=== PATIENT | male | born 1980 | race Caucasian/White ===

== ENCOUNTER 2024-05-29 10:16 | Outpatient (CLI) | payer SELFPAY ==
--- NOTE | 2024-05-29 10:39 | CT_ITS ---
WS: [id number] CT ABDOMEN AND PELVIS WITH CONTRAST HISTORY: K37 - Unspecified appendicitis TECHNIQUE: Imaging performed of the abdomen and pelvis with IV contrast. Single phase imaging of the abdomen. Coronal and sagittal reformats are submitted. All CT scans at [facility] use at [address] one of these dose optimization techniques: automated exposure control; mA and/or kV adjustment per patient size (includes targeted exams where dose is matched to clinical indication); or iterative re construction. IV CONTRAST: Omnipaque 350; 100 mL IV. Oral contrast: No DLP: 375.06 mGy.cm COMPARISON: None available. Lower thorax: Lung bases are clear. Heart is normal size. No hiatal hernia. Liver/biliary system: Normal size with no intrahepatic dilatation. Gallbladder: Normal. No gallstones or wall thickening. No pericholecystic fluid. Pancreas: Normal size pancreas and pancreatic duct. No adjacent inflammation. Spleen: Normal size spleen. No mass or infarct. Adrenal glands: Normal. Right kidney: Normal. Left kidney: Normal. Aorta: Normal. Lymphadenopathy: None. Free fluid: None. GI tract: Abnormal appendix. The appendix is dilated to 11 mm in diameter. There is mild periappendic eal inflammation. No appendiceal rupture. There is no abscess. No GI tract obstruction. Diffuse moder ate constipation. Abdominal wall: Unremarkable abdominal wall. No hernia. Pelvis: No free fluid or adenopathy within the pelvis. Bones: Hypertrophic RIGHT ilium is not acute. No destruction. CT/CT abdomen pelvis w con* [id number] IMPRESSION: 1. Acute appendicitis without rupture. No abscess or free fluid. 2. Mild diffuse constipation. 3. No renal obstruction. Notified ROSA Mauro at 05/29/2024 11:03 AM.
[2024-05-29] MEDS: iohexol 350 mg/mL 500 mL Btl (per mL) IV (10:48)
== END 2024-05-29 10:17 | disposition home or self-care (01) ==
LOC: RAD 10:17
PROVIDERS: Family Provider Nurse Practitioner Family; PCP Nurse Practitioner Family; Visit Provider Registered Nurse
DX: K35.890 Other acute appendicitis without perforation or gangrene (principal); K59.00 Constipation, unspecified
CPT/HCPCS: 74177; 81000

== ENCOUNTER 2024-05-29 11:13 | Observation (INO) | payer SELFPAY ==
[2024-05-29] VITALS (16 sets, daily range): BP systolic 121–158; BP diastolic 73–93; PULSE 61–97; RESP 16–22; TEMP 36.2–36.6; O2SAT 92–99; BMI 25.0; BMI 25.2
--- NOTE | 2024-05-29 11:33 | W.ED.ABDPA2 ---
HPI - Abdominal Pain General: Chief Complaint: Abdominal Pain Stated Complaint: appendix(sent by ct) Time Seen by Provider: 05/29/24 11:24 Source: patient Mode of arrival: ambulatory Limitations: no limitations History of Present Illness: 44-year-old male states has been having right lower quad abdominal pain for the last 3 days. Seen in clinic today and set him up for outpatient CT scan that showed appendicitis was sent here. He rates his pain a 4 out of 10 currently has had some nausea denies any vomiting denies any fever Associated Symptoms: Denies chills, diarrhea, fever(s), nausea and vomiting Related Data Home Medications Medication Instructions Recorded Confirmed No Known Home Medications 08/01/23 05/29/24 Allergies Allergy/AdvReac Type Severity Reaction Status Date / Time Opioids - Morphine Analogues Allergy Severe throat Verified 05/29/24 08:41 swelling Review of Systems Const: Denies: fever(s), chills, body aches or change in appetite ENMT: Denies: throat pain or dental pain Card: Denies: chest pain Resp: Denies: dyspnea GI: Reports: abdominal pain; Denies: nausea, vomiting or diarrhea Musc: Denies: neck pain or back pain Skin/Breast: Denies: rash Neuro: Denies: headache(s) PFSH ED PFSH: Family History Other COPD (chronic obstructive pulmonary disease) Diabetes Diabetes mellitus type 1 Social History Smoking and tobacco/nicotine status: current every day tobacco/nicotine user Physical Exam Const: COMMON NORMALS: no acute distress, patient oriented x3 and healthy appearing HENMT: COMMON NORMALS: normocephalic and atraumatic HEAD & SCALP: normocephalic and atraumatic Eye: COMMON NORMALS: Equal, round and reactive pupils present and EOMs intact bilaterally PUPIL: Yes Equal, round and reactive pupils present Neck/C-Spine: COMMON NORMALS: full ROM and supple Chest: COMMONS NORMALS: normal inspection of the chest Resp: COMMON NORMALS: normal respiratory effort Cardio: COMMON NORMALS: regular rate, regular rhythm and No murmurs present (Cardio) RATE: regular rate RHYTHM: regular rhythm GI: COMMON NORMALS: Normal to inspection, nondistended, normoactive bowel sounds present, Soft to palpation and no masses PALPATION: Yes Soft to palpation and Yes Tenderness to palpation present (GI) Details: RLQ Extremity: COMMON NORMALS: normal to inspection and full ROM Neuro: COMMON NORMALS: patient oriented x3, moves all extremities and no focal motor deficits Psych: COMMON NORMALS: mental status grossly normal, Normal thought process present and cooperative THOUGHT PROCESS: Normal thought process present Skin: COMMON NORMALS: no rashes or lesions noted and no wounds GENERAL SKIN EXAM: no rashes or lesions noted Course Vital Signs: Vital signs: Vital Signs Temperature 97.8 F 05/29/24 11:25 Pulse Rate 66 05/29/24 11:25 Respiratory Rate 16 05/29/24 11:25 Blood Pressure 126/91 05/29/24 11:25 Pulse Oximetry 98 05/29/24 11:25 Oxygen Delivery Me thod Room Air 05/29/24 11:25 MDM - Abdominal Pain Medical Decision Making I spoke to surgeon Dr. melo will admit patient this time for his appendicitis Medical Records I reviewed the patient's medical records. All radiology interpretation(s) finalized by discharge Discharge Plan Discharge Patient Disposition: Admitted As Inpatient Clinical Impression: Acute appendicitis Condition: Stable Prescriptions: No Action No Known Home Medications Referrals: Blayne Kay FNP [Primary Care Provider] - Patient Instructions: Appendicitis (GEN) Coding Level of Care Code ED Plant Engineering Manager for Shakila Almanzar
[2024-05-29] MEDS: piperacillin-tazobactam 3.375 GM in sodium chloride 0.9% (plus) 50 ML IV ×2 (11:49→17:51)
[2024-05-29] MEDS: ondansetron 2 mg/ML SDV 2 mL 4 MG IVP (12:13)
[2024-05-29 12:37] LABS: Basophils % 0.4 %; Eosinophils # 0.1 10^3/uL (0.0-0.8); Eosinophils % 1.6 %; Hematocrit 47.2 % (37-53); Lymphocytes # 2.3 10^3/uL (0.8-4.8); Lymphocytes % 29.2 %; Mean Corpuscular HGB Conc 34.1 g/dL (30-55); Mean Corpuscular Volume 88.1 fl (82-101); Mean Platelet Volume 9.6 fL (7.4-10.4); Monocytes # 0.7 10^3/uL (0.2-0.9); Neutrophils # 4.77 10^3/uL (1.8-7.7); Neutrophils % 59.6 %; Nucleated Red Blood Cells % 0 %; Platelet Count 342 10^3/cmm (157-399); Red Blood Count 5.36 10^6/uL (3.85-5.65); Red Cell Distribution Width 12.8 % (12.1-15.1); White Blood Count 8.01 10^3/uL (3.29-11.43)
[2024-05-29 12:57] LABS: Alanine Aminotransferase 28 U/L (0-41); Albumin Level 4.3 g/dL (3.5-5.2); Alkaline Phosphatase 116 U/L (40-130); Anion Gap 13.4 (5-19); Aspartate Amino Transferase 19 U/L (0-40); Blood Urea Nitrogen 10 mg/dL (6-20); Calcium 9.2 mg/dL (8.5-10.5); Carbon Dioxide 27 mmol/L (22-29); Chloride 102 mmol/L (98-107); Creatinine Clr Calc Pharmacy 137.3553; Globulin 3.1 g/dL (1.3-4.6); Glucose 90 mg/dL (65-115); Lipase 23 U/L (13-60); Osmolality Calculated 285 mOsm/kg (285-295); Potassium 4.4 mmol/L (3.5-5.1); Sodium 138 mmol/L (136-145); Total Bilirubin 0.5 mg/dL (0.15-1.2); Total Protein 7.4 g/dL (6.6-8.7)
--- NOTE | 2024-05-29 15:22 | PM.HP ---
Providers/Chief Complaint Admitting Physician: Javan Nick MD Primary Care Provider: Blayne Kay Chief Complaint: appendix(sent by ct) History of Present Illness Ronny Magdaleno is a 44 year old male who has been complaining of 3 to 4 days of abdominal pain to right lower quadrant, he presented to outside clinic and was sent out for outpatient CT scan which show evidence of appendicitis. He presented to the ER for further management. Patient reports about 3 days of abdominal pain that will worsen during the day and get better at the morning, nausea but no vomiting, no diarrhea. Review of Systems General: Reports: 10 or more systems reviewed and unremarkable except in HPI and below Medications/Allergies Home Medications Medication Instructions Recorded Confirmed Last Taken Type No Known Home Medications 08/01/23 05/29/24 Unknown History Allergies Allergy/AdvReac Type Severity Reaction Status Date / Time Opioids - Morphine Analogues Allergy Severe throat Verified 05/29/24 08:41 swelling PFSH Acute PFSH: Family History Other COPD (chronic obstructive pulmonary disease) Diabetes Diabetes mellitus type 1 Social History Smoking and tobacco/nicotine status: current every day tobacco/nicotine user Vitals/I&O/Wt Last Vital Signs Temp 97.8 F 05/29/24 11:25 Pulse 93 05/29/24 12:56 Resp 18 05/29/24 12:56 BP 122/80 05/29/24 12:56 Pulse Ox 96 05/29/24 12:56 O2 Del Method Room Air 05/29/24 14:22 05/29/24 05/29/24 05/29/24 06:59 14:59 22:59 Intake Total 50 / 50 Balance 50 / 50 Weight last 48 hrs Weight 190 lb Physical Exam Narrative: General : Patient is well developed , no acute distress, oriented x3 Head : Normal cephalic, a-traumatic. Nose : Mucous membranes are without erythema. Lungs : Equal chest rise bilaterally, no use of accessory muscles, trachea is midline. CV : Rate and rhythm are normal. Abdomen : Soft, tenderness to palpation of right lower quadrant McBurney sign positive. Extremities : No edema. Upper extremities are normal bilaterally. Back : non-tender to palpation, no CVA tenderness. Data 05/29/24 11:45 05/29/24 11:45 A&P Assessment and plan (1) Acute appendicitis: Plan After complete history physical examination the following is my assessment. Patient shows evidence of acute appendicitis, laparoscopic appendectomy is indicated. Have discussed all the risk benefits of the procedure including the risks of conversion to open procedure, bleeding, infection, need for additional interventions, abscess formation, injury to surrounding structure and including the colon the small bowel ureter and vessels of the pelvis. Patient shows understanding wishes to proceed, I also informed the patient there is a risk for hernia formation. He shows understanding is agreeable to proceed. -N.p.o. -IV Zosyn -Pain control -On-call to the OR for lap appendectomy Attestations Medical Necessity Statement*: Patient will require 24 hours of hospital stay for appendectomy and antibiotic management. Coding Level of Care Code Acute Code for [facility] Diagnoses Acute appendicitis K35.80
--- NOTE | 2024-05-29 17:11 | ANES.PREANE2 ---
Pre-Anesthetic Assessment Height/Weight: Height 6 ft 1 in Weight 191 lb Temp Pulse Resp BP Pulse Ox O2 Del Method 97.4 F L 61 17 128/87 99 Room Air 05/29/24 15:08 05/29/24 15:08 05/29/24 15:08 05/29/24 15:08 05/29/24 15:08 05/29/24 15:08 Preop Diagnosis: Acute appendicitis Operation Date: 05/29/24 18:45 Proposed Procedures p Laparoscopic Appendectomy(Not Applicable) - Javan Nick MD Was Beta Kirill taken within 24 hours: N/A Was Clonidine taken within 24 hours: N/A Social Tobacco and No alcohol Exam alert, oriented x 3, clear to auscultation bilaterally and regular rate & rhythm Airway Submandibular: within normal limits Cervical ROM: within normal limits Mallampati: Class III Dentition: partials Anesthetic Plan ASA status: 2 Anesthesia: General Other: Patient presents send acute appendicitis No prior issues with anesthesia No home medications Current smoker Labs reviewed and acceptable for procedure Plan for GETA Medications/Allergies Home Medications Medication Instructions Recorded Confirmed Last Taken Type amoxicillin 875 mg-potassium 1 tab PO BID 7 days #14 tabs 05/29/24 Unknown Rx clavulanate 125 mg tablet meloxicam 7.5 mg tablet 7.5 mg PO DAILY #7 tabs 05/29/24 Unknown Rx Allergies Allergy/AdvReac Type Severity Reaction Status Date / Time Opioids - Morphine Analogues Allergy Severe throat Verified 05/29/24 08:41 swelling [facility] Anesthesia Family History Other COPD (chronic obstructive pulmonary disease) Diabetes Diabetes mellitus type 1 Social History Smoking and tobacco/nicotine status: current every day tobacco/nicotine user Data Anesthesia 05/29/24 11:45 05/29/24 11:45 Short CBC 05/29/24 Range/Units 11:45 WBC 8.01 (3.29-11.43) 10^3/uL Hgb 16.10 (11.27-16.99) g/dL Hct 47.2 (37-53) % MCV 88.1 (82-101) fl Plt Count 342 (157-399) 10^3/cmm Neut % (Auto) 59.6 % Neut # (Auto) 4.77 (1.8-7.7) 10^3/uL BMP 05/29/24 11:45 Sodium 138 Potassium 4.4 Chloride 102 Carbon Dioxide 27 BUN 10 Creatinine 0.8 Glucose 90 Calcium 9.2 Liver Function 05/29/24 Range/Units 11:45 Total Bilirubin 0.5 (0.15-1.2) mg/dL AST 19 (0-40) U/L ALT 28 (0-41) U/L Alkaline Phosphatase 116 (40-130) U/L Albumin 4.3 (3.5-5.2) g/dL Cardiac Studies: No Data to Display
--- NOTE | 2024-05-29 18:20 | PC.NURSE ---
pt to preop/or at approx. 1820
[2024-05-29] MEDS: BUPivacaine 0.25% INJ 10 mL 5 ML INJECTION (19:54)
[2024-05-29] MEDS: lidocaine-epi 1% 20 mL INJ 5 ML INJECTION (19:55)
[2024-05-29] MEDS: sodium chloride 0.9% 1,000 ML 30 ML IV (19:56)
--- NOTE | 2024-05-29 20:31 | PM.OP ---
Operative Report Date of procedure: May 29, 2024 Pre-op diagnosis: Acute appendicitis Post-op diagnosis: Same Post-op findings: Inflamed appendix, no perforation, no free fluid, there was also a small umbilical hernia measuring less than 1 cm. Procedure done: Laparoscopic appendectomy Specimens removed/disposition: Appendix Surgeon: Javan Nick MD Single Fold Machine Operator: PENNY OR Staff Estimated blood loss: 5 Brief History: 30-year-old male with acute appendicitis, laparoscopic appendectomy was indicated after discussion of all risk and benefits with side to proceed. Procedure: Patient was brought into the OR, he was placed in a supine position. General anesthesia was given. The abdomen was prepped and draped in the usual sterile fashion. Timeout was conducted. The abdomen was accessed via a infraumbilical incision using an open technique, during entry a small umbilical hernia was noted, the hernia was used to access the abdomen, access on trocar was placed and fixed to the fascia with 0 Vicryl. Initial pneumoperitoneum was obtained and no evidence of visceral injury during entry was noted. Additional 5 mm trocars were placed in the left lower quadrant and suprapubic position. This was done under direct visualization. The patient was placed in a steep Trendelenburg position with the left side down. The appendix was identified on the right lower quadrant., The appendix was noted to be inflamed, the base appeared healthy, I grasped the appendix and then I proceeded to take the mesoappendix to the level of the base using LigaSure. I then transected the appendix at the level of the base with a 45 mm blue load Endo YVES stapler. The staple line was hemostatic and healthy. The specimen was retrieved in the Endo Catch bag through the umbilical trocar site. Additional inspection of the abdomen show evidence of no additional pathology and appendiceal fat appear healthy. The umbilical trocar site was then closed using #0 Vicryl with a Anthony-Iva suture passer. 2 separate sutures were placed in order to close the defect. The suprapubic trocar was removed under direct visualization the left lower quadrant trocar was used to evacuate the pneumoperitoneum and subsequently removed. Local anesthesia was used in all the trocar sites, the incisions were then closed using #4-0 Monocryl for the subcuticular layer. And Dermabond was applied. At the end of the procedure all counts were correct, the patient tolerated well the procedure was transferred to the PACU in stable condition.
--- NOTE | 2024-05-29 20:36 | P.DS_ITS ---
Discharge Providers Date of Admission: 05/29/24 11:59 Date of Discharge: May 29, 2024 Attending Provider at Admission: Javan Nick MD Attending Provider at Discharge: Javan Nick MD Primary Care Provider: Blayne Kay Diagnoses at Discharge Discharge Diagnosis (1) Acute appendicitis: Details from hospital stay: 44-year-old male who presented with acute appendicitis, laparoscopic appendectomy was done without complication patient was released home on the postoperative period and will follow-up as outpatient. Status: Acute Reason for Visit Reason for Visit: appendix(sent by ct) Discharge Data Studies Completed and Pending Pending at discharge Category Date Time Status Pathology: Surgical [PTH] Routine Pth 05/29/24 20:27 Ordered Laboratory Results WBC 8.01 10^3/uL (3.29-11.43) 05/29/24 11:45 RBC 5.36 10^6/uL (3.85-5.65) 05/29/24 11:45 Hgb 16.10 g/dL (11.27-16.99) 05/29/24 11:45 Hct 47.2 % (37-53) 05/29/24 11:45 MCV 88.1 fl (82-101) 05/29/24 11:45 MCH 30.0 pg (27-33) 05/29/24 11:45 MCHC 34.1 g/dL (30-55) 05/29/24 11:45 RDW 12.8 % (12.1-15.1) 05/29/24 11:45 Plt Count 342 10^3/cmm (157-399) 05/29/24 11:45 MPV 9.6 fL (7.4-10.4) 05/29/24 11:45 Neut % (Auto) 59.6 % 05/29/24 11:45 Lymph % (Auto) 29.2 % 05/29/24 11:45 [place] % (Auto) 9.0 % 05/29/24 11:45 Eos % (Auto) 1.6 % 05/29/24 11:45 Baso % (Auto) 0.4 % 05/29/24 11:45 Neut # (Auto) 4.77 10^3/uL (1.8-7.7) 05/29/24 11:45 Lymph # (Auto) 2.3 10^3/uL (0.8-4.8) 05/29/24 11:45 [place] # (Auto) 0.7 10^3/uL (0.2-0.9) 05/29/24 11:45 Eos # (Auto) 0.1 10^3/uL (0.0-0.8) 05/29/24 11:45 Baso # (Auto) 0.0 10^3/uL (0.0-0.1) 05/29/24 11:45 Nucleated RBC % (auto) 0 % 05/29/24 11:45 Nucleated RBCs # 0.0 /100WBC 05/29/24 11:45 Sodium 138 mmol/L (136-145) 05/29/24 11:45 Potassium 4.4 mmol/L (3.5-5.1) 05/29/24 11:45 Chloride 102 mmol/L (98-107) 05/29/24 11:45 Carbon Dioxide 27 mmol/L (22-29) 05/29/24 11:45 Anion Gap 13.4 (5-19) 05/29/24 11:45 BUN 10 mg/dL (6-20) 05/29/24 11:45 Creatinine 0.8 mg/dL (0.7-1.2) 05/29/24 11:45 GFR Calculation 105.0 mL/min (90-130) 05/29/24 11:45 Glucose 90 mg/dL (65-115) 05/29/24 11:45 Calculated Osmolality 285 mOsm/kg (285-295) 05/29/24 11:45 Calcium 9.2 mg/dL (8.5-10.5) 05/29/24 11:45 Total Bilirubin 0.5 mg/dL (0.15-1.2) 05/29/24 11:45 AST 19 U/L (0-40) 05/29/24 11:45 ALT 28 U/L (0-41) 05/29/24 11:45 Alkaline Phosphatase 116 U/L (40-130) 05/29/24 11:45 Total Protein 7.4 g/dL (6.6-8.7) 05/29/24 11:45 Albumin 4.3 g/dL (3.5-5.2) 05/29/24 11:45 Globulin 3.1 g/dL (1.3-4.6) 05/29/24 11:45 Lipase 23 U/L (13-60) 05/29/24 11:45 Vitals Last Vital Signs Temp 97.4 F L 05/29/24 15:08 Pulse 97 05/29/24 18:30 Resp 18 05/29/24 18:30 BP 144/89 05/29/24 18:30 Pulse Ox 96 05/29/24 18:30 O2 Del Method Room Air 05/29/24 18:30 Discharge Plan Discharge Patient Disposition: Home Condition: Stable Prescriptions: New amoxicillin-pot clavulanate 875-125 mg tablet 1 tab PO BID 7 Days Qty: 14 0RF meloxicam 7.5 mg tablet 7.5 mg PO DAILY Qty: 7 0RF Discharge Orders: Discharge Order (Routine); Ordered 05/29/24 Ordered By: Javan Nick Referrals: Blayne Kay, HIDE COOKING OPERATOR [Primary Care Provider] - Discharge Diet: Advance as tolerated Discharge Activity: Limit activity as instructed Patient Instructions: Appendicitis (GEN), Acute Wound Care (DC), Opioid Safety, Post Anesthesia Care Activity Restrictions/Additional Instructions: No heavy lifting during the next 6 weeks. Walk is much as possible this will speed up your recovery. You can shower starting the day after tomorrow, let soap and water run over your wounds and pat dry. Return to the hospital you have fever chills severe abdominal pain that is getting worse over time or purulence from your wounds. Please take your medication as indicated. If you need additional pain medication you can take Tylenol scheduled. You may experience pain in the shoulders and in the mid abdomen due to the gas, this pain will wean off in the next 2 to 3 days. Discharge Attestations Time Spent in Discharge Care*: less than 30 min Quality Metrics Clinical Quality Measures [ No reported AMI, CVA or VTE this stay] Coding Level of Care Code Acute Code for [facility] Fwd Diagnoses Acute appendicitis K35.80
--- NOTE | 2024-05-29 21:21 | PC.NURSE ---
Patient returned from surgery with discharge orders. Pt is A&OX3 with family is at the bedside.
[2024-05-29] MEDS: HYDROmorphone 1 mg/mL INJ 1 mL IVP (21:47)
--- NOTE | 2024-05-29 21:58 | PC.NURSE ---
Dilaudid given, discharge instructions given to patient and , already picked up the prescriptions. IV removed and pt taken via wheelchair out to his vehicle.
== END 2024-05-29 22:23 | disposition home or self-care (01) ==
LOC: ER 11:39 → MEDSURG 12:01
PROVIDERS: Admitting Provider Surgery; Emergency Provider Emergency Medicine; PCP Nurse Practitioner Family; Visit Provider Surgery
PROC: 0DTJ4ZZ Resection of Appendix, Percutaneous Endoscopic Approach (ICD-10-PCS; CPT 44970; principal; 2024-05-29 18:35)
DX: K35.80 Unspecified acute appendicitis (principal); F17.200 Nicotine dependence, unspecified, uncomplicated; J44.9 Chronic obstructive pulmonary disease, unspecified; E10.9 Type 1 diabetes mellitus without complications
CPT/HCPCS: 44970; 36415; 80053; 83690; 85025; 88304; 96365; 99285; G0378; J1100; J1170; J2250; J2405; J2543; J2704; J3490; J7030